=== PATIENT | female | born 1970 | race Caucasian/White ===

== ENCOUNTER 2022-09-17 08:06 | Emergency (ER) | payer OTHER ==
[~2022-09-17] VITALS: Ht 167.6 cm; Wt 76.2 kg
[2022-09-17] MEDS ORDERED: PEPCID AC20 MG PO (14:31)
[2022-09-17] MEDS ORDERED: LEVSIN/SL0.125 MG SL (14:31)
== END 2022-09-17 14:46 | disposition home or self-care (01) ==
LOC: ER 08:06
DX: R10.32 Left lower quadrant pain (principal)